=== PATIENT | female | born 1995 | race Caucasian/White ===

== ENCOUNTER 2019-11-28 21:03 | Emergency (ER) | payer SELFPAY ==
--- NOTE | 2019-11-28 23:33 | EDM.PDOC ---
ED HPI GENERAL MEDICAL PROBLEM - General Chief Complaint: Head Injury Stated Complaint: BOX FELL ON RIGHT SIDE OF HEAD AT WORK Time Seen by Provider: 11/28/19 23:02 Source of Information: Reports: Patient History Limitations: Reports: No Limitations - History of Present Illness INITIAL COMMENTS - FREE TEXT/NARRATIVE: This is a 24-year-old female. She was lifting up a box she thinks maybe weighs 10 pounds and it got out of control and she dropped it and hit her right forehead and right cheek. She had no loss of consciousness she did not fall down. She does complain of some dizziness some nausea and a headache. She comes to the ER because work asked her to be evaluated. She denies any vomiting she denies any ataxia. She says other than the dizziness and nausea and the headache she feels okay. Head Pain Score (Numeric/FACES): 6 - Related Data Allergies Allergy/AdvReac Type Severity Reaction Status Date / Time No Known Allergies Allergy Verified 11/28/19 21:29 Home Meds: Home Meds . [No Known Home Meds] 11/28/19 [History] Past Medical History - Past Health History Medical/Surgical History: Denies Medical/Surgical History - Past Surgical History HEENT Surgical History: Reports: Oral Surgery Female Surgical History: Reports: Section Social & Family History - Family History Family Medical History: Noncontributory - Tobacco Use Smoking Status *Q: Never Smoker - Caffeine Use Caffeine Use: Reports: Coffee, Soda - Recreational Drug Use Recreational Drug Use: No ED ROS GENERAL - Review of Systems Review Of Systems: See Below Constitutional: Denies: Fever, Chills HEENT: Reports: Other (As per HPI) Respiratory: Reports: No Symptoms Cardiovascular: Reports: No Symptoms Endocrine: Reports: No Symptoms GI/Abdominal: Reports: No Symptoms : Reports: No Symptoms Musculoskeletal: Denies: Neck Pain Skin: Reports: No Symptoms Neurological: Reports: Headache Psychiatric: Reports: No Symptoms Hematologic/Lymphatic: Reports: No Symptoms ED EXAM, HEAD INJURY - Physical Exam Exam: See Below Exam Limited By: No Limitations General Appearance: Alert, WD/WN, No Apparent Distress Head: Atraumatic, Normocephalic, Other (She does not have any bruising to her right forehead or her cheekbone noted or swelling.) Ears: Normal External Exam, Normal Canal, Normal TMs Nose: Normal Inspection Throat/Mouth: Normal Voice, No Airway Compromise Neck: Non-Tender, Full Range of Motion Respiratory: No Respiratory Distress, Lungs Clear, Normal Breath Sounds Cardiovascular: Regular Rate, Rhythm, No Murmur Back Exam: Full Range of Motion Extremities: Normal Inspection, Normal Range of Motion Neurologic: No Motor/Sensory Deficits, Alert, Normal Mood/Affect, Oriented x 3 Skin: Normal Color, Warm/Dry - Aggie Coma Score Best Eye Response ([place]): (4) Open Spontaneously Best Verbal Response ([place]): (5) Oriented Best Motor Response ([place]): (6) Obeys Commands Aggie Total: 15 Course - Vital Signs Last Recorded V/S: Last Vital Signs Temp 98.8 F 11/28/19 21: Pulse 97 11/28/19 21:26 Resp 15 11/28/19 21:26 BP 138/94 H 11/28/19 21: Pulse Ox 100 11/28/19 21:26 - Orders/Labs/Meds Orders: Active Orders 24 hr Category Date Time Status Head wo Cont [CT] Stat Exams 11/28/19 23:30 Taken Meds: Medications Discontinued Medications Generic Name Dose Route Start Last Admin Trade Name Freq PRN Reason Stop Dose Admin Ibuprofen 400 mg 11/29/19 00:01 Motrin PO 11/29/19 00:02 ONETIME ONE - Radiology Interpretation Free Text/Narrative:: CT scan of the head does not show any acute intracranial abnormalities. - Re-Assessments/Exams Free Text/Narrative Re-Assessment/Exam: 11/29/19 00:22 Patient has been doing well in the ER with no difficulty and talking or walking. I spoke to her regarding her CT scan results that they were normal. Departure - Departure Time of Disposition: 00:23 Disposition: Home, Self-Care 01 Condition: Good Clinical Impression: Nausea, Dizziness Closed head injury Qualifiers: Encounter type: initial encounter Qualified Code(s): S09.90XA - Unspecified injury of head, initial encounter Headache Qualifiers: Headache type: unspecified Headache chronicity pattern: acute headache Intractability: not intractable Qualified Code(s): R51.9 - Headache, unspecified - Discharge Information *PRESCRIPTION DRUG MONITORING PROGRAM REVIEWED*: Not Applicable *COPY OF PRESCRIPTION DRUG MONITORING REPORT IN PATIENT KELLEY: Not Applicable Instructions: Nausea, Adult, Head Injury, Adult, [id number] Referrals: PCP,None [Primary Care Provider] - Forms: ED Department Discharge Additional Instructions: Go home and sleep in a dark room for as long as you can, rest and avoid bright lights and electronics for the next 24 hours, week ibuprofen as needed for the headache, drink lots of water because that helps with the headaches, follow-up with your family doctor later this week for recheck or return to the ER if needed. Sepsis Event Note (ED) - Evaluation Sepsis Screening Result: No Definite Risk - Focused Exam Vital Signs: Vital Signs Temp Pulse Resp BP Pulse Ox 11/28/19 21:26 98.8 F 97 15 138/94 H 100 - My Orders Last 24 Hours: My Active Orders 11/28/19 23:30 Head wo Cont [CT] Stat - Assessment/Plan Last 24 Hours: My Active Orders 11/28/19 23:30 Head wo Cont [CT] Stat
[2019-11-29] MEDS ORDERED: Ibuprofen 400 MG Tab PO ONE (00:01)
--- NOTE | 2019-12-30 08:27 | CT ---
PROCEDURE INFORMATION: Exam: CT Head Without Contrast Exam date and time: 11/28/2019 11:39 PM Age: 24 years old Clinical indication: Injury or trauma; Other: Hit in the head by a falling object; Work related; Concussion/head injury; Without loss of consciousness TECHNIQUE: Imaging protocol: Computed tomography of the head without contrast. COMPARISON: No relevant prior studies available. FINDINGS: Brain: Normal. No hemorrhage. Unremarkable white matter. No mass effect. Cerebral ventricles: No ventriculomegaly. Bones/joints: Unremarkable. No acute fracture. Paranasal sinuses: Complete opacification of the left sphenoid sinus and mild mucosal thickening of the right sphenoid and ethmoid air cells. Mastoid air cells: Visualized mastoid air cells are well aerated. Soft tissues: Unremarkable. IMPRESSION: No acute intracranial abnormality. Thank you for allowing us to participate in the care of your patient. Dictated and Authenticated by: Marlon Barcenas MD 12/29/2019 7:09 PM Central Time ([place] & [place]) RUPESH
== END 2019-11-29 00:50 | disposition home or self-care (01) ==
LOC: JD.ED 21:03
DX: S09.90XA Unspecified injury of head, initial encounter (principal); R11.0 Nausea; R42 Dizziness and giddiness; W22.8XXA Striking against or struck by other objects, initial encounter
CPT/HCPCS: 70450; 99284; A9270; 99282

== ENCOUNTER 2021-02-24 19:04 | Emergency (ER) | payer MEDICAID ==
[2021-02-24] MEDS ORDERED: Ibuprofen 600 MG Tab PO ONE (19:52)
--- NOTE | 2021-02-24 19:56 | EDM.PDOC ---
ED HPI GENERAL MEDICAL PROBLEM - General Chief Complaint: Respiratory Problem Stated Complaint: COUGH/FEVER/CHILLS Time Seen by Provider: 02/24/21 19:33 Source of Information: Reports: Patient History Limitations: Reports: No Limitations - History of Present Illness INITIAL COMMENTS - FREE TEXT/NARRATIVE: 25-year-old female presents the emergency department today with complaints of fever, chills, body aches, headache, cough and shortness of breath. She states the symptoms started approximately 5 days ago however she states that worsened. She states she has not taken any Tylenol or ibuprofen for her discomfort and she does not have any at home. She states her cough seems to be worsening and causes pain in her chest when coughing. She denies any significant past medical history. She states she is not a smoker. She states she has not had her Covid or influenza vaccines this season. Generalized Pain Score (Numeric/FACES): 5 - Related Data Allergies Allergy/AdvReac Type Severity Reaction Status Date / Time No Known Allergies Allergy Verified 02/24/21 19:37 Home Meds: Home Meds . [No Known Home Meds] 11/28/19 [History] Past Medical History - Past Health History Medical/Surgical History: Denies Medical/Surgical History CHEMIST STEROIDS History: Reports: - Past Surgical History HEENT Surgical History: Reports: Oral Surgery Female Surgical History: Reports: Section Social & Family History - Family History Family Medical History: No Pertinent Family History - Tobacco Use Tobacco Use Status *Q: Never Tobacco User Second Hand Smoke Exposure: No - Caffeine Use Caffeine Use: Reports: Coffee, Soda - Recreational Drug Use Recreational Drug Use: No ED ROS GENERAL - Review of Systems Review Of Systems: Comprehensive ROS is negative, except as noted in HPI. ED EXAM, GENERAL - Physical Exam Exam: See Below Exam Limited By: No Limitations General Appearance: Alert, WD/WN, Mild Distress Ears: Normal External Exam, Hearing Grossly Normal Nose: Normal Inspection Throat/Mouth: Normal Inspection, Normal Lips, Normal Voice, No Airway Compromise Head: Atraumatic, Normocephalic Neck: Normal Inspection, Supple Respiratory/Chest: No Respiratory Distress, Lungs Clear, Normal Breath Sounds, No Accessory Muscle Use, Chest Non-Tender Cardiovascular: Normal Peripheral Pulses, Regular Rate, Rhythm, No Edema, No Murmur GI/Abdominal: Normal Bowel Sounds, Soft, Non-Tender, No Distention (Female) Exam: Deferred Rectal (Female) Exam: Deferred Back Exam: Normal Inspection Extremities: Normal Inspection Neurological: Alert, Oriented, Normal Cognition Psychiatric: Normal Mood, Tearful Skin Exam: Warm, Dry, Intact, Normal Color, No Rash Lymphatic: No Adenopathy Course - Vital Signs Text/Narrative:: As stated above, patient presents with flulike symptoms that started approximately 5 days ago. The time of my exam, the patient does have a low- grade temp of 100.5 and is mildly tachycardic likely due to her fever. He is otherwise hemodynamically stable with O2 saturations at 99% on room air. Physical exam is essentially unremarkable. Lungs are clear and heart rate is regular. Abdomen is soft and nontender. Will obtain a Covid and influenza swab on this patient. We will also medicate her with ibuprofen 600 mg p.o. Last Recorded V/S: Last Vital Signs Temp 100.5 F 02/24/21 19:35 Pulse 103 H 02/24/21 19:35 Resp 15 02/24/21 19:35 BP 117/82 02/24/21 19:35 Pulse Ox 99 02/24/21 19:35 - Orders/Labs/Meds Labs: Laboratory Tests 02/24/21 Range/Units 19:37 Influenza Type A RNA Positive H (NEGATIVE) Influenza Type B RNA Negative (NEGATIVE) SARS-CoV-2 RNA ([facility]) Positive H (NEGATIVE) Meds: Medications Discontinued Medications Generic Name Dose Route Start Last Admin Trade Name Freq PRN Reason Stop Dose Admin Ibuprofen 600 mg 02/24/21 19:52 02/24/21 19:57 Ibuprofen 600 Mg Tab PO 02/24/21 19:53 600 mg ONETIME ONE Administration - Re-Assessments/Exams Free Text/Narrative Re-Assessment/Exam: 02/24/21 20:40 Patient tested positive for influenza A and Covid. Did discuss monoclonal antibody treatment with the patient. At this time her oxygen levels are satisfactory. Lung sounds are clear. Will send her home with a pulse oximeter. If her oxygen levels start to drop less than 92% or she starts to feel significantly worse in the next 48 hours she has been instructed to return to the emergency department for antibody treatment. At this time she does have her 5-year-old son in the room with her and she states she does need to get him home. Departure - Departure Time of Disposition: 20:42 Disposition: Home, Self-Care 01 Condition: Good Clinical Impression: Influenza, COVID-19 - Discharge Information Instructions: 10 Things You Can Do to Manage Your COVID-19 Symptoms at Home - CDC (09/09/2020), Influenza, Adult, COVID-19: Quarantine vs. Isolation - [facility] (02/11/2020) Referrals: PCP,Unobtain [Primary Care Provider] - Forms: ED Department Discharge Additional Instructions: You were seen in the emergency department this evening with flulike symptoms that started approximately 5 days ago. You are tested for Covid and influenza. Both your influenza and Covid test did come back positive. As discussed you are not a candidate for Tamiflu, the antiviral treatment for influenza due to the fact that it has to be given within the first 72 hours of your symptoms. We did discuss antibody treatment for Covid. You have been sent home with a pulse oximeter to monitor your oxygen levels. They should be greater than 92% at all times. Should they drop less than 90% in the next 48 hours or you start to feel significantly worse, recommend that you come back into the emergency department for antibody treatment. Get plenty of rest and drink plenty of fluids. May take Tylenol 650 mg every 4 hours as needed for fever or body aches or ibuprofen 600 mg every 6-8 hours as needed for fever and body aches. Sepsis Event Note (ED) - Focused Exam Vital Signs: Vital Signs Temp Pulse Resp BP Pulse Ox 02/24/21 19:35 100.5 F 103 H 15 117/82 99
[2021-02-24 20:26] LABS: CORONAVIRUS COVID-19 NAA POSITIVE (NEGATIVE)
== END 2021-02-24 21:01 | disposition home or self-care (01) ==
LOC: JD.ED 19:04
DX: U07.1 COVID-19 (principal); J11.1 Influenza due to unidentified influenza virus with other respiratory manifestations
CPT/HCPCS: 0240U; 99283; A9270

== ENCOUNTER 2021-07-01 09:10 | Emergency (ER) | payer MEDICAID ==
[2021-07-01] MEDS ORDERED: Ondansetron 4 MG/2 ML SDV IVPUSH ONE (09:40)
[2021-07-01] MEDS ORDERED: Ketorolac 30 MG/ML SDV IVPUSH ONE (09:40)
[2021-07-01] MEDS ORDERED: Sodium Chloride 0.9% 1,000 ML IV ONE ×2 (09:40→11:33)
[2021-07-01] MEDS ORDERED: fentaNYL 100 MCG/2 ML SDV IVPUSH ONE (10:20)
[2021-07-01 11:36] LABS: CORONAVIRUS COVID-19 NAA NEGATIVE (NEGATIVE)
[2021-07-01] MEDS ORDERED: HYDROmorphone 1 MG/ML Syringe IVPUSH ONE (11:44)
[2021-07-01] MEDS ORDERED: Albuterol/Ipratropium 3.0-0.5 MG/3 ML Neb Soln NEB ONE (12:43)
[2021-07-01] MEDS ORDERED: Sulfamethoxazole/Trimethoprim 800-160 MG Tab PO ONE (12:58)
== END 2021-07-01 13:35 | disposition home or self-care (01) ==
LOC: JD.ED 09:10
DX: J11.1 Influenza due to unidentified influenza virus with other respiratory manifestations (principal); N39.0 Urinary tract infection, site not specified; Z79.899 Other long term (current) drug therapy; Z20.822 Contact with and (suspected) exposure to COVID-19
CPT/HCPCS: 0240U; 36415; 71046; 80053; 81001; 83605; 85007; 85027; 87086; 94640; 96374; 96375; 96376; 99284; A9270; J1170; J1885; J2405; J3010; J7030; 87088; 87186; J7620-GY